=== PATIENT | female | born 1970 | race Caucasian/White ===

== ENCOUNTER 2024-01-20 06:52 | Emergency (ER) | payer OTHER, SELFPAY ==
[2024-01-20 07:01] VITALS: BP 118/79
[2024-01-20 07:21] VITALS: BMI 36.6
[2024-01-20 07:49] LABS: % Basophils 0.5 % (0-2); % Eosinophils 8.4 % (0-6); % Immature Granulocytes 0.5 % (0-0.5); % Lymphocytes 11.8 % (20.5-51.1); % Monocytes 7.2 % (1.7-9.3); % Neutrophils 71.6 % (42.2-75.2); Absolute Basophils 0.1 10^3/uL (0-0.2); Absolute Eosinophils 1.1 10^3/uL (0-0.7); Absolute Immature Granulocytes 0.1 10^3/uL (0-0.05); Absolute Lymphocytes 1.5 10^3/uL (1.2-3.4); Absolute Monocytes 0.9 10^3/uL (0.1-0.6); Absolute Neutrophils 9.2 10^3/uL (1.4-6.5); Hematocrit 41.9 % (37.0-47.0); Hemoglobin 14.5 g/dL (12.0-16.0); Mean Corp Hgb Conc. 34.6 g/dL (33.0-37.0); Mean Corpuscular Hgb 28.8 pg (27.0-31.0); Mean Corpuscular Volume 83.1 fL (81.0-99.0); Mean Platelet Volume 10.1 fL (7.4-10.4); Nucleated Red Blood Cells % 0 %; Platelet Count 246 10^3/uL (130-400); Red Blood Cell Count 5.04 10^6/uL (4.20-5.40); White Blood Cell Count 12.8 10^3/uL (4.8-10.8)
--- NOTE | 2024-01-20 08:28 | ED.GENMED ---
History of Present Illness
General
Chief Complaint: Abdominal Pain
Source: patient and family
Exam Limitations: none
Time Seen by Provider: 01/20/24 07:38
Nursing documentation reviewed up to this point in time: agreed with
Travel History
Have you had any contact with someone who has COVID-19?: No
Do you have any symptoms of coronavirus? Fever > 100 degrees, chills, cough, shortness of breath, sore throat, loss of taste or smell, muscle aches, or headache?: No
History of Present Illness
History of Present Illness:
54-year-old female presents emergency department complaining of abdominal pain, nausea, reflux and diarrhea for the past 20 days. She saw gastroenterology, and was recommended to get stool studies and has a colonoscopy planned. She takes Wegovy.
Past History
Past History
ED Past Medical History: Other (M�ni�re's)
ED Past Surgical History: Cardiac (PFO closure)
Social History
Tobacco: Non-smoker
Alcohol: None
Drug: None
Review of Systems
Review of Systems
Allergies reviewed?: Yes
All Other Systems: Not applicable
Constitutional: Reports no symptoms
EENT: Reports no symptoms
Respiratory: Reports no symptoms
Cardiac: Reports no symptoms
ABD/GI: Reports abdominal pain
: Reports no symptoms
Musculoskeletal: Reports no symptoms
Skin: Reports no symptoms
Neurological: Reports no symptoms
Endocrine: Reports no symptoms
Hematologic/Lymphatic: Reports no symptoms
Psychiatric: Reports no symptoms
Phy Exam
Physical Exam
Physical Exam:
Physical Exam
General: no apparent distress, not acutely ill
Neck: supple. no meningeal signs. normal posterior pharynx
Heart: s1/s2 regular rate and rhythm, no murmur. equal radial
pulses.
HEENT: Pupils equal round reactive to light, EOMI
Lungs: no acute respiratory distress. clear bilaterally
Abdomen: normal bowel sounds. not tender. no CVAT
Neuro: alert and oriented. no focal neurological deficits cranial nerves II through XII intact
Skin: no rash
Psychiatric: well kept. interactive and cooperative
Extremities: no edema. no calf tenderness. negative homans. good distal pulses
Course
Orders/Labs/Results
Orders:
Orders
01/20/24 07:35
Complete Blood Count/With Diff Urgent
01/20/24 07:56
CT Abd/pelvis W Iv Cont Urgent
Comment:
Reason For Exam: diffuse abdominal pain, n/v/d
01/20/24 08:10
Basic Metabolic Panel Urgent
Lipase Urgent
01/20/24 09:42
0.9% Sodium Chloride 1000 ml [Nss] 1,000 ml IV BOLUS
01/20/24 10:16
Ondansetron Injectable [Zofran] 4 mg IV NOW STA
01/20/24 10:26
STOOL [C difficile Antigen & Toxins] Urgent
MUNDO Source: Feces/Stool
Specimen Description:
Date Specimen was Collected: 01/20/24
Time Specimen was Collected: 10:24
Stool Culture Urgent
MUNDO Source: Feces/Stool
Specimen Description:
Date Specimen was Collected: 01/20/24
Time Specimen was Collected: 10:24
01/20/24 12:03
Pantoprazole [Protonix IV] 40 mg IV NOW STA
Abnormal Lab Results
01/20/24 01/20/24
07:35 08:10
WBC 12.8 H 10^3/uL
(4.8-10.8)
Abs Immat Gran (auto) 0.1 H 10^3/uL
(0-0.05)
Absolute Neuts (auto) 9.2 H 10^3/uL
(1.4-6.5)
Absolute Monos (auto) 0.9 H 10^3/uL
(0.1-0.6)
Absolute Eos (auto) 1.1 H 10^3/uL
(0-0.7)
Lymphocytes % 11.8 L %
(20.5-51.1)
Eosinophils % 8.4 H %
(0-6)
Chloride 111 H mmol/L
(98-107)
Carbon Dioxide 17 L mmol/L
(22-30)
01/20/24 07:35
01/20/24 08:10
Vital Signs
Initial and Last Documented VS:
Initial Vital Signs
Temp Pulse Resp BP Pulse Ox
98.3 F 99 20 118/79 99
01/20/24 07:01 01/20/24 07:01 01/20/24 07:01 01/20/24 07:01 01/20/24 07:01
Last Documented Vital Signs
Temp Pulse Resp BP Pulse Ox
98.3 F 67 16 97/62 98
01/20/24 07:01 01/20/24 12:58 01/20/24 12:58 01/20/24 12:58 01/20/24 12:58
MDM/Problems Addressed
Differential Diagnosis Includes:
Diverticulitis, colitis
MDM/Problems Addressed:
54-year-old female with nausea vomiting diarrhea. No acute findings on CT abdomen pelvis. Interestingly, CT scan did not show the CLINICAL NURSE LEADER shunt. Will have patient follow-up with primary care for this. Patient also has GI follow-up. No indication for
antibiotics. Symptoms could possibly be related to patient's use Wegovy.
Chronic conditions affecting care: Other (M�ni�re's)
Acute Exacerbation and/or Progression of Chronic Illness: Other (Wegovy use)
*Radiology
Radiology exam reviewed: radiology read reviewed (CT abdomen pelvis shows signs of gastroenteritis, no CLINICAL NURSE LEADER shunt seen)
*Pulse Oximetry
Patient hypoxic: no
*EKG
Interpreted by ED Provider?: NA
*Data Communications Technician Interpretation
Rate: Data Communications Technician- N/A
*Critical Care Note
Total Time (30-74mins, 75-104mins- exclusive of procedures): Not Applicable
Patient Management
Social determinants of health affecting care: Living situation
Escalation/DeEscalation of care consider admission/obs:
Admit not indicated
ED Attending Note
-
Portions of this chart may have been created with voice recognition software.� Occasional wrong word or��sound alike� substitutions may have occurred due to the inherent limitations of voice recognition software.
Discharge Plan
Departure
Patient Disposition: Home (Routine Discharge)
Date of Disposition: 01/20/24
Time of Disposition: 12:00
Patient with high blood pressure during this ER visit?: No
Condition: Good
Discharge Problem:
Nausea vomiting and diarrhea
Instructions: Diarrhea in teens and adults, Nausea and Vomiting, Adult (DC)
Prescriptions:
New
pantoprazole [Protonix] 40 mg tablet,delayed release (DR/EC)
40 mg PO DAILY Qty: 30 0RF
ondansetron 4 mg tablet,disintegrating
4 mg PO Q8H PRN (Reason: nausea and vomiting) 4 Days Qty: 14 0RF
Referrals:
Vanessa Sánchez CRNP [Family Provider] -
Interventions
Interventions:
*Risk Screen - Suicide Last Done: 01/20/24 07:01
*General Assessment Last Done: 01/20/24 07:21
*Neglect/Abuse Screening Last Done: 01/20/24 07:21
ED- Fall Risk Assessment Last Done: 01/20/24 07:01
*ED COVID-19 Vaccine History Last Done: 01/20/24 07:01
*Nursing Disposition Last Done: 01/20/24 13:01
JS-Pwcxfg-Gnyvumatdl Assessment Last Done: 01/20/24 07:21
Discharge Date and Time
Discharge Date/Time: 01/20/24 13:01
Print Language: TANZANIAN
[2024-01-20 08:54] LABS: Blood Urea Nitrogen 12 mg/dl (7-17); Calcium 9.4 mg/dl (8.4-10.2); Carbon Dioxide 17 mmol/L (22-30); Chloride 111 mmol/L (98-107); Estimated Creatinine Clearance 107 ml/min; Glucose 98 mg/dl (70-99); Sodium 137 mmol/L (135-145); eGFR > 60.00
[2024-01-20 09:42] LABS: Lipase 202 U/L (23-300)
[2024-01-20] MEDS: NSS 1000 IV (10:21)
[2024-01-20] MEDS: ZOFRAN 4 MG IV (10:22)
[2024-01-20] MEDS: PROTONIX IV 40 MG IV (12:36)
[2024-01-20 12:58] VITALS: BP 97/62
== END 2024-01-20 13:01 | disposition home or self-care (01) ==
LOC: EMR 06:52
PROVIDERS: EMERGENCY PHYSICIAN Emergency Medicine; FAMILY PHYSICIAN Nurse Practitioner Adult Health
DX: R11.2 Nausea with vomiting, unspecified (principal); R19.7 Diarrhea, unspecified; K21.9 Gastro-esophageal reflux disease without esophagitis
CPT/HCPCS: 99284; 96374; 96375; 96361; 74177; 80048; 83690; 85025; 87045; 87046; 87324; 87427; 87449; Q9967

== ENCOUNTER 2024-02-13 11:25 | Emergency (ER) | payer OTHER, SELFPAY ==
[2024-02-13 11:26] VITALS: BP 161/85
[2024-02-13 11:49] VITALS: BMI 37.1
[2024-02-13 12:00] VITALS: BP 163/91
[2024-02-13 12:21] LABS: % Basophils 0.3 % (0-2); % Eosinophils 4.1 % (0-6); % Immature Granulocytes 0.3 % (0-0.5); % Lymphocytes 20.9 % (20.5-51.1); % Monocytes 12.7 % (1.7-9.3); % Neutrophils 61.7 % (42.2-75.2); Absolute Eosinophils 0.3 10^3/uL (0-0.7); Absolute Lymphocytes 1.4 10^3/uL (1.2-3.4); Absolute Monocytes 0.8 10^3/uL (0.1-0.6); Hematocrit 38.5 % (37.0-47.0); Mean Corp Hgb Conc. 33.8 g/dL (33.0-37.0); Mean Corpuscular Hgb 28.4 pg (27.0-31.0); Mean Corpuscular Volume 84.2 fL (81.0-99.0); Mean Platelet Volume 9.7 fL (7.4-10.4); Nucleated Red Blood Cells % 0 %; Platelet Count 285 10^3/uL (130-400); Red Blood Cell Count 4.57 10^6/uL (4.20-5.40); Red Cell Dist. Width 12.9 % (11.5-14.5); White Blood Cell Count 6.5 10^3/uL (4.8-10.8)
[2024-02-13 12:30] LABS: HCG, Serum Qualitative Screen Negative
--- NOTE | 2024-02-13 12:37 | ED.GENMED ---
History of Present Illness
<Coni Pires PA-C - Last Filed: 02/13/24 18:41>
General
Chief Complaint: Abdominal Pain
Source: patient
Exam Limitations: none
Time Seen by Provider: 02/13/24 12:16
Nursing documentation reviewed up to this point in time: agreed with
History of Present Illness
History of Present Illness:
Patient is a 54-year-old female presenting to the emergency department for evaluation of abdominal pain. Patient states symptoms started acutely this morning with right upper quadrant abdominal pain and associated nausea. Patient does note a very
decreased appetite over the past few days and did not eat much yesterday. Patient did notice a fever of 100 F yesterday which resolved. Patient denies any associated chest pain, shortness of breath, constipation, or urinary symptoms. Patient does
get a monthly period and states that it should be starting soon.
Of note�patient did have a colonoscopy on Thursday due to ongoing GI symptoms over the past few months including diarrhea. Patient states she did not have any pain immediately following colonoscopy and did not start to feel symptoms of this morning.
Patient reports no abnormal findings found on colonoscopy. Patient denies any blood in her stool or dark stool.
Patient denies any history of abdominal surgeries.
Past History
<Coni Pires PA-C - Last Filed: 02/13/24 18:41>
Past History
ED Past Medical History: Other (M�ni�re's)
ED Past Surgical History: Cardiac (PFO closure)
Social History
Tobacco: Non-smoker
Alcohol: None
Drug: None
Review of Systems
<Coni Pires PA-C - Last Filed: 02/13/24 18:41>
Review of Systems
Allergies reviewed?: Yes
All Other Systems: ROS reviewed and negative except as documented in HPI and ROS
Phy Exam
<Coni Pires PA-C - Last Filed: 02/13/24 18:41>
Physical Exam
Physical Exam:
Vitals: Hypertensive, otherwise vital signs stable. Afebrile
General: Patient is in moderate distress due to pain, nontoxic
Skin: Warm and dry, no rashes or lesions
Head: Normocephalic, atraumatic
Eyes: Sclera nonicteric. EOMs intact. No nystagmus.
Throat: Protecting airway
Neck: Normal ROM, no cervical spine tenderness, no meningismus
Cardiac: Regular rate and rhythm, no murmurs.
Pulm: Normal respiratory effort, no wheezes, rales, rhonchi heard on exam.
Abdomen: Abdomen soft. Moderate tenderness in right upper quadrant and epigastric region. Positive Kruse sign. No CVA tenderness. No rashes or ecchymoses on trunk.
Extremities: No evidence of cyanosis or edema. Great distal pulses
Neuro: AAOx3. CN II-XII intact. No focal neurologic deficits.
Psychiatric: Normal affect.
Course
<Coni Pires PA-C - Last Filed: 02/13/24 18:41>
Orders/Labs/Results
Orders:
Orders
02/13/24 11:30
EKG [Electrocardiogram (*1)] Urgent
Reason for Study: Chest Pain
EKG- Treatment ONCE
02/13/24 11:56
Test Result ONCE
02/13/24 11:57
CMP [Comprehensive Metabolic Panel] Urgent
Complete Blood Count/With Diff Urgent
Lipase Urgent
, Serum Qualitative Screen [HCG, Serum Qualitative Screen] Urgent
Troponin I Urgent
02/13/24 12:36
0.9% Sodium Chloride 1000 ml [Nss] 1,000 ml IV BOLUS
Ketorolac [Toradol] 15 mg IV NOW STA
Ondansetron Injectable [Zofran] 4 mg IV NOW STA
US Abdomen Complete/Upper Urgent
Comment:
Reason For Exam: RUQ abdominal pain, +n/v
02/13/24 12:46
Urinalysis Reflex To Culture Urgent
Date Specimen was Collected: 02/13/24
Time Specimen was Collected: 12:39
Urine Microscopic Reflex Cult Urgent
Urine Culture Urgent
MUNDO Source: U
Specimen Description:
Date Specimen was Collected: 02/13/24
Time Specimen was Collected: 12:39
Abnormal Lab Results
02/13/24 02/13/24
11:57 12:46
Absolute Monos (auto) 0.8 H 10^3/uL
(0.1-0.6)
Monocytes % 12.7 H %
(1.7-9.3)
Glucose 100 H mg/dl
(70-99)
Lipase 307 H U/L
(23-300)
Urine Ketones Trace A
(Negative)
Ur Occult Blood Reflex 3+ A
(Negative)
Leukocyte Esterase Rfl 1+ A
(Negative)
Urine RBC 7-10 A /HPF
(0-2)
Urine Bacteria (Reflex) Few A
(Negative)
02/13/24 11:57
02/13/24 11:57
Vital Signs
Initial and Last Documented VS:
Initial Vital Signs
Temp Pulse Resp BP Pulse Ox
98.6 F 69 16 161/85 98
02/13/24 11:26 02/13/24 11:26 02/13/24 11:26 02/13/24 11:26 02/13/24 11:26
Last Documented Vital Signs
Temp Pulse Resp BP Pulse Ox
98.6 F 65 18 160/80 99
02/13/24 11:26 02/13/24 15:21 02/13/24 15:21 02/13/24 15:21 02/13/24 15:21
<Niles Lin, DO - Last Filed: 02/13/24 14:49>
Orders/Labs/Results
Orders:
Orders
02/13/24 11:30
EKG [Electrocardiogram (*1)] Urgent
Reason for Study: Chest Pain
EKG- Treatment ONCE
02/13/24 11:56
Test Result ONCE
02/13/24 11:57
CMP [Comprehensive Metabolic Panel] Urgent
Complete Blood Count/With Diff Urgent
Lipase Urgent
, Serum Qualitative Screen [HCG, Serum Qualitative Screen] Urgent
Troponin I Urgent
02/13/24 12:36
0.9% Sodium Chloride 1000 ml [Nss] 1,000 ml IV BOLUS
Ketorolac [Toradol] 15 mg IV NOW STA
Ondansetron Injectable [Zofran] 4 mg IV NOW STA
US Abdomen Complete/Upper Urgent
Comment:
Reason For Exam: RUQ abdominal pain, +n/v
02/13/24 12:46
Urinalysis Reflex To Culture Urgent
Date Specimen was Collected: 02/13/24
Time Specimen was Collected: 12:39
Urine Microscopic Reflex Cult Urgent
Urine Culture Urgent
MUNDO Source: U
Specimen Description:
Date Specimen was Collected: 02/13/24
Time Specimen was Collected: 12:39
Abnormal Lab Results
02/13/24 02/13/24
11:57 12:46
Absolute Monos (auto) 0.8 H 10^3/uL
(0.1-0.6)
Monocytes % 12.7 H %
(1.7-9.3)
Glucose 100 H mg/dl
(70-99)
Lipase 307 H U/L
(23-300)
Urine Ketones Trace A
(Negative)
Ur Occult Blood Reflex 3+ A
(Negative)
Leukocyte Esterase Rfl 1+ A
(Negative)
Urine RBC 7-10 A /HPF
(0-2)
Urine Bacteria (Reflex) Few A
(Negative)
02/13/24 11:57
02/13/24 11:57
Vital Signs
Initial and Last Documented VS:
Initial Vital Signs
Temp Pulse Resp BP Pulse Ox
98.6 F 69 16 161/85 98
02/13/24 11:26 02/13/24 11:26 02/13/24 11:26 02/13/24 11:26 02/13/24 11:26
Last Documented Vital Signs
Temp Pulse Resp BP Pulse Ox
98.6 F 65 18 160/80 99
02/13/24 11:26 02/13/24 15:21 02/13/24 15:21 02/13/24 15:21 02/13/24 15:21
<Coni Pires PA-C - Last Filed: 02/13/24 18:41>
MDM/Problems Addressed
Differential Diagnosis Includes:
Not limited to: Biliary colic, cholecystitis, pancreatitis, kidney stone, UTI, appendicitis, bowel perforation, colitis
MDM/Problems Addressed:
54-year-old female presenting with acute onset right upper quadrant pain associate with nausea and vomiting this morning. Patient did have colonoscopy earlier this week with no abnormal findings. Recent diffuse abdominal discomfort and frequent
diarrhea over the past month or so. Seen in emergency department a few weeks ago with normal CT scan of abdomen. Patient hypertensive on arrival to emergency department likely due to pain, otherwise vital signs are stable. Patient is afebrile.
Physical exam as above. Patient is in moderate distress due to pain, although nontoxic-appearing. Heart regular rate and rhythm. Lungs clear bilaterally. She does have significant right upper quadrant abdominal tenderness with a positive Kruse
sign. No rash or ecchymoses of trunk. Labs were obtained which show no clinically significant abnormalities. Liver function tests are normal. Lipase essentially normal at 307. There was some red blood cells seen in patient's urine although
patient believes that she may be starting her period shortly. No signs of urinary tract infection on urinalysis. Low suspicion for kidney stone given abdominal tenderness to palpation and location of pain. Patient did have significant improvement
in pain and seems to be resting more comfortably following dose of Toradol, Zofran, fluids. Ultrasound of abdomen is still pending.
Abdominal ultrasound shows signs of cholelithiasis without any signs suggesting acute cholecystitis. There is a negative sonographic sign. Patient remains comfortable in the emergency department following single dose of Toradol. Patient is
afebrile, with no leukocytosis or elevation in liver function test. Symptoms most consistent with biliary colic. Did reach out to general surgeon on-call, Dr. Osman and attempt to expedite outpatient follow-up for likely elective
cholecystectomy. General surgery office will call patient on Thursday morning to schedule appointment. Patient stable for discharge with return precautions, low-fat diet, NSAIDs as needed for discomfort. Patient and patient's comfortable
with plan. All questions answered.
Chronic conditions affecting care:
N/A
Acute Exacerbation and/or Progression of Chronic Illness:
Biliary colic
<Coni Pires PA-C - Last Filed: 02/13/24 18:41>
*Radiology
Radiology exam reviewed: preliminary read by ED provider and radiology read reviewed
*Pulse Oximetry
Patient hypoxic: no
*EKG
Interpreted by ED Provider?: NA
*Relay Engineer Interpretation
Rate: Relay Engineer- N/A
*Critical Care Note
Total Time (30-74mins, 75-104mins- exclusive of procedures): Not Applicable
<Coni Pires PA-C - Last Filed: 02/13/24 18:41>
Patient Management
Discussion with other providers: Trainer (Dr. Osman-General surgery)
ED Attending Note
<Coni Pires PA-C - Last Filed: 02/13/24 18:41>
-
Portions of this chart may have been created with voice recognition software.� Occasional wrong word or��sound alike� substitutions may have occurred due to the inherent limitations of voice recognition software.
<Niles Diamond Piotrberonica, - Last Filed: 02/13/24 14:49>
ED Attending Note
Patient seen and examined by attending physician: Yes
I performed the substantive portion of visit, reviewed & personally made and approve the management plan that is documented in note by myself or NATE.: Yes
I performed a history and physical exam of patient and discussed management with resident, I reviewed resident's note and agree with documented findings and plan of care.: Yes
ED Attending Note:
I evaluated patient at bedside. Labs unremarkable but gallstones are noted on ultrasound. She had a relatively unremarkable recent CT of the abdomen pelvis. She states she has been having poor p.o. intake with diarrhea over the past month and is
looking to have her gallbladder taken out as soon as possible as this is the likely cause of her symptoms. We are contacting general surgery to help expedite follow-up.
Discharge Plan
Departure
Patient Disposition: Home (Routine Discharge)
Date of Disposition: 02/13/24
Time of Disposition: 15:14
Patient with high blood pressure during this ER visit?: Yes
Condition: Good
Covid-19: Not Applicable
Discharge Problem:
Biliary colic
Instructions: Gallstones (DC), BLOOD PRESSURE
Prescriptions:
No Action
pantoprazole [Protonix] 40 mg tablet,delayed release (DR/EC)
40 mg PO DAILY Qty: 30 0RF
ondansetron 4 mg tablet,disintegrating
4 mg PO Q8H PRN (Reason: nausea and vomiting) 4 Days Qty: 14 0RF
Referrals:
Vanessa Sánchez CRNP [Family Provider] -
Yefri Osman MD [Active] - Next open appointment
Activity Restrictions/Additional Instructions:
RETURN TO THE EMERGENCY DEPARTMENT WITH ANY FEVERS, CHILLS, SEVERE ABDOMINAL PAIN, INTRACTABLE NAUSEA/VOMITING, INTRACTABLE PAIN, CHEST PAIN, SHORTNESS OF BREATH, WORSENING IN CURRENT SYMPTOMS, OR ANY OTHER CONCERNS
-If symptoms return�you should take Motrin and/or Tylenol as needed for discomfort. You can take Zofran 4 mg every 8 hours as needed for nausea. Is important to stay well-hydrated. As discussed�you should follow a low-fat diet.
-Follow-up with general surgery for further evaluation/management for likely outpatient cholecystectomy. You should be receiving a call from the general surgeons office on Thursday. If you do not hear back from them you should give me a call.
Interventions
Interventions:
*Risk Screen - Suicide Last Done: 02/13/24 11:26
*General Assessment Last Done: 02/13/24 11:26
*Neglect/Abuse Screening Last Done: 02/13/24 11:26
ED- Fall Risk Assessment Last Done: 02/13/24 11:49
*ED COVID-19 Vaccine History Last Done: 02/13/24 11:49
*Nursing Disposition Last Done: 02/13/24 15:22
NQ-Sxklsw-Vahbrdcfqd Assessment Last Done: 02/13/24 11:49
Discharge Date and Time
Discharge Date/Time: 02/13/24 15:23
Print Language: ERITREAN
[2024-02-13 12:42] LABS: Troponin I < 0.012 ng/ml
[2024-02-13] MEDS: ZOFRAN 4 MG IV (12:43)
[2024-02-13] MEDS: TORADOL 15 MG IV (12:43)
[2024-02-13] MEDS: NSS 1000 IV (12:43)
[2024-02-13 12:44] LABS: ALT (SGPT) 19 U/L (0-35); AST (SGOT) 22 U/L (14-36); Albumin 4.1 g/dl (3.5-5.0); Alkaline Phosphatase 71 U/L (38-126); Blood Urea Nitrogen 17 mg/dl (7-17); Calcium 9.6 mg/dl (8.4-10.2); Carbon Dioxide 24 mmol/L (22-30); Chloride 105 mmol/L (98-107); Estimated Creatinine Clearance 81 ml/min; Glucose 100 mg/dl (70-99); Lipase 307 U/L (23-300); Potassium 4.1 mmol/L (3.5-5.1); Sodium 137 mmol/L (135-145); Total Bilirubin 0.5 mg/dl (0.2-1.3); Total Protein 6.6 g/dl (6.3-8.2); eGFR > 60.00
[2024-02-13 12:57] LABS: Urine Albumin Negative (Neg - Trace); Urine Bilirubin Negative (Negative); Urine Character Clear (Clear); Urine Color Yellow; Urine Glucose Negative (Negative); Urine Ketone Trace (Negative); Urine Leukocyte 1+ (Negative); Urine Nitrite Negative (Negative); Urine Occult Blood 3+ (Negative); Urine Urobilinogen Negative (Neg - 1+)
[2024-02-13 13:23] LABS: Urine Bacteria Few (Negative)
[2024-02-13 15:21] VITALS: BP 160/80
== END 2024-02-13 15:23 | disposition home or self-care (01) ==
LOC: EMR 11:25
PROVIDERS: Physician Assistant; Student in an Organized Health Care Education/Training Program; EMERGENCY PHYSICIAN Emergency Medicine; FAMILY PHYSICIAN Nurse Practitioner Adult Health
DX: K80.70 Calculus of gallbladder and bile duct without cholecystitis without obstruction (principal); I10 Essential (primary) hypertension
CPT/HCPCS: 99284; 96374; 96375; 96361; 76700; 80053; 81003; 81015; 83690; 84484; 84703; 85025; 87086; 93005

== ENCOUNTER 2024-03-17 06:27 | Day surgery (SDC) | payer OTHER, SELFPAY ==
[2024-03-10 14:05] VITALS: BMI 37.4
--- NOTE | 2024-03-14 16:06 | PTCARENOTE ---
Abn ECG. Dr Pires notified, no actions requested.
[2024-03-17] VITALS (12 sets, daily range): BP systolic 118–157; BP diastolic 72–93; BMI 36.5
--- NOTE | 2024-03-17 10:37 | W.SUR.PREOP ---
Pre-Operative Surgical Note
-
I have examined this patient prior to the performance of the scheduled procedure.
The patient's condition is unchanged from the time of the current History and
Physical and the patient is able to undergo the scheduled procedure.
[2024-03-17] MEDS: TYLENOL 1000 MG PO (12:27)
[2024-03-17] MEDS: NORMOSOL-R 1000 IV ×2 (12:39→16:13)
--- NOTE | 2024-03-17 15:14 | W.IMMPOSTOP ---
Surgical Immed Post Op Note
-
Primary Surgeon: Ravindra Ricardo MD
Assisting Surgeon: None
Pre-op Diagnosis: Biliary colic
Post-op Diagnosis: Same
Procedure Performed: Laparoscopic cholecystectomy with cholangiogram
Anesthesia Type: General
Specimen / Cultures: Gallbladder and contents
Estimated Blood Loss: 7 cc
Complications: None
Operative Findings: Flimsy adhesions from the periduodenal fat to the infundibulum. Critical view of safety obtained prior to applying to [place] which demonstrated normal biliary anatomy, no filling defects in brisk flow of contrast into the
duodenum. Duct ligated with a clip followed by 0 PDS Endoloop.
--- NOTE | 2024-03-17 15:15 | OR.RPT ---
Operative Report
Operative Report
Patient Name: Julissa Chakraborty
: 1970
Date of Operation: 03/17/2024
Preoperative Diagnosis: Symptomatic Cholelithiasis
Postoperative Diagnosis: Same
Procedure(s):
Laparoscopic Cholecystectomy with Cholangiogram
Surgeon(s):
Dr. Ricardo
Phone Banker(s):
None
Anesthesia: General
Estimated Blood Loss: 7 cc
Urine Output: None
Drains/Lines/Implants: None
Specimens:
1. Gallbladder and contents
HPI/Surgical Indications:
This is a 54year old female who presents with intermittent postprandial right upper quadrant abdominal pain. Exam, labs and imaging are consistent with symptomatic cholelithiasis. Risks/Benefits/Alternatives were discussed at length, and the patient
agreed to proceed with surgery.
Operative Findings: Flimsy adhesions from the periduodenal fat to the infundibulum. Critical view of safety obtained prior to applying to [place] which demonstrated normal biliary anatomy, no filling defects in brisk flow of contrast into the
duodenum. Duct ligated with a clip followed by 0 PDS Endoloop.
Procedure Description:
The patient was brought to the Operating Room and placed in the supine position. IV antibiotics were infused and sequential compression devices were confirmed to be on. Following uneventful induction of general endotracheal anesthesia, an
orogastric tube was placed. The abdomen was prepped and draped in the usual sterile fashion. The abdomen was entered using a left subcostal Veress technique which required 1 pass followed by a right upper quadrant periumbilical 5 mm Optiview
trocar. Pneumoperitoneum to 15 mmHg pressure was obtained without difficulty and we confirmed that no injury had occurred during our entry. The patient was positioned in reverse trendelenberg and rotated with the right side up slightly. Two 5mm
trocars were then placed along the right subcostal margin, and a 12 mm port in the epigastrium. A locking grasping forceps was placed on the fundus of the gallbladder where it was then retracted cephalad and to the right. There were some flimsy
adhesions from the periduodenal fat to the anterior surface of the gallbladder which was lysed with electrocautery and blunt dissection. Using appropriate grasping instruments, the peritoneum overlying the triangle of Calot was incised. The cystic
duct/gallbladder junction was identified, dissected circumferentially. The cystic artery was identified medially and was dissected circumferentially. A critical view was obtained. A clip was then placed on the cystic duct/gallbladder junction and
an intraoperative cholangiogram performed using fluoroscopy, which showed good flow of dye into the duodenum. There were no intra- or extrahepatic bile duct filling defects. The biliary anatomy appeared normal. Following completion of the
cholangiogram, the catheter was removed. Two clips were then placed proximally on the cystic duct and the duct divided. Two clips were placed proximally and one distally on the cystic artery, and the artery was divided. Remaining soft tissue
attachments of the gallbladder to the liver bed were then divided using electrocautery. There was no spillage of bile or stones. The gallbladder bed was inspected and excellent hemostasis was obtained. The gallbladder was extracted through the 12
mm trocar site using an endocatch bag. The abdomen was again irrigated and excellent hemostasis was assured. All remaining trocars were then removed and the pneumoperitoneum was evacuated. The 12 mm trocar site was closed using a figure of 8 of 0
PDS. All trocar sites were closed at the skin level using 4-0 Monocryl followed by Dermabond. Overall, the patient tolerated the procedure well and was taken to the Recovery Room postoperatively in stable condition.
I was the attending physician and performed the procedure with no assistance. I was present for all portions of the case
Ravindra Ricardo MD
[2024-03-17] MEDS: ZOFRAN 4 MG IV (15:28)
[2024-03-17] MEDS: DEMEROL 12.5 MG IV (15:32)
[2024-03-17] MEDS: DILAUDID 0.25 MG IV ×2 (15:50→16:11)
== END 2024-03-17 17:58 | disposition home or self-care (01) ==
LOC: SDS 06:27
PROVIDERS: ATTENDING PHYSICIAN Surgery; FAMILY PHYSICIAN Nurse Practitioner Adult Health
DX: K80.10 Calculus of gallbladder with chronic cholecystitis without obstruction (principal); K66.0 Peritoneal adhesions (postprocedural) (postinfection)
CPT/HCPCS: 47563; 88304; 36415; 74300; 76000; 93005; A4300